=== PATIENT | female | born 1960 | race Caucasian/White ===

== ENCOUNTER 2022-05-30 02:03 | Emergency (ER) | payer MEDICAID, SELFPAY ==
[2022-05-30] VITALS (12 sets, daily range): BP systolic 97–145; BP diastolic 57–84; PULSE 88–125; RESP 11–20; TEMP 37–37.8; O2SAT 91–98; BMI 23.3
--- NOTE | ~2022-05-30 | CT_ITS ---
EXAMINATION: CT HEAD WITHOUT CONTRAST CT CERVICAL SPINE WITHOUT CONTRAST CLINICAL INFORMATION: Fall with loss of consciousness. COMPARISON: None TECHNIQUE: Contiguous axial imaging was performed from the skull base to vertex without intravenous administration of contrast. Contiguous axial imaging was performed from the upper chest through the skull base without intravenous administration of contrast. Coronal and sagittal reformats were obtained at the acquisition workstation. This CT examination was performed using dose optimization techniques as appropriate, variously including the following: *Automated exposure control *Adjustment of mA and/or kV according to patient size (this includes techniques or standardized protocols for targeted exams where dose is matched to indication/reason for exam; i.e. extremities or head) *Use of iterative reconstruction technique DLP: 331 mGy-cm FINDINGS: Head: There is no evidence of acute intracranial hemorrhage or edematous territorial infarction. A few foci of hypoattenuation in the periventricular and deep white matter are consistent with mild microangiopathy. Price-white matter differentiation is preserved. The ventricles are normal in size and configuration. No evidence for obstructive hydrocephalus. No abnormal mass effect or midline shift. No extra-axial fluid collections. Laceration with a small scalp hematoma in the right occipital vertex. No calvarial fracture. Mucosal thickening of the paranasal sinuses. Trace amount of left-sided mastoid fluid. Cervical Spine: The atlantooccipital and atlantoaxial articulations remain well aligned. Straightening of the normal cervical lordosis. Otherwise, there is anatomic alignment of the vertebral bodies and posterior elements. No evidence of acute fracture or subluxation. Mild multilevel cervical spondylosis. There is no prevertebral soft tissue swelling. Enlarged and heterogeneous thyroid gland with multiple nodules, measuring greater than 1 cm in the right side. Multilevel bilateral cervical lymphadenopathy, nonspecific. The lung apices demonstrate no abnormalities. CT/CT cervical spine wo IV con IMPRESSION: 1. Laceration with a small scalp hematoma in the right occipital vertex. 2. No acute intracranial abnormalities. 3. No acute cervical fractures or malalignment. 4. Enlarged and heterogeneous thyroid gland with multiple nodules. Recommend correlation with a nonemergent thyroid ultrasound. 5. Nonspecific bilateral cervical lymphadenopathy.
--- NOTE | ~2022-05-30 | CT_ITS ---
EXAMINATION: CT ANGIOGRAM OF THE CHEST WITH AND WITHOUT CONTRAST (CT PULMONARY ANGIOGRAM FOR PE) CLINICAL INFORMATION: Reason for Exam syncope, elevated dimer COMPARISON: None TECHNIQUE: Prior to contrast administration, noncontrast localization images were obtained. Subsequently, multidetector volumetric imaging was performed from the thoracic inlet to below the diaphragms following the administration of 80 mL Omnipaque 350 intravenous contrast. No contrast reaction reported Sagittal, coronal, and MIP oblique sagittal reformatted images were obtained on the CT workstation, uploaded to PACS, and reviewed. This CT examination was performed using dose optimization techniques as appropriate, variously including the following: *Automated exposure control *Adjustment of mA and/or kV according to patient size (this includes techniques or standardized protocols for targeted exams where dose is matched to indication/reason for exam; i.e. extremities or head) *Use of iterative reconstruction technique Total exam dose-length product 218 mGy-cm FINDINGS: QUALITY OF STUDY/CONTRAST BOLUS: Satisfactory. PULMONARY ARTERIES: No central or segmental pulmonary emboli. THORACIC AORTA: No aneurysm or dissection. LUNG: The lungs are well-expanded there is bibasilar compressive atelectasis. Otherwise lungs are clear. PLEURA: No pleural effusion or pneumothorax. MEDIASTINUM: Normal heart size. No pericardial effusion. No hilar or mediastinal lymphadenopathy. No evidence of septal bowing or right heart strain. The right thyroid lobe is enlarged with heterogeneous appearance question nodule. There is likely a small nodule in the left lobe as well. CHEST WALL/AXILLA: No axillary or internal mammary lymphadenopathy. OSSEOUS STRUCTURES: No lytic or sclerotic process seen UPPER ABDOMEN: There is a 1.2 cm cyst right hepatic lobe adjacent diaphragm. No additional lesions seen. No intrahepatic ductal dilatation. Visualized spleen, pancreas and bilateral adrenal glands unremarkable. No reflux of contrast into the hepatic veins to suggest elevated right heart pressures. CT/CT angio chest PE protocol IMPRESSION: 1. No evidence of PE. 2. No evidence of aortic dissection or aneurysm. 3. Bibasilar compressive atelectasis. 4. Enlarged right thyroid lobe with heterogeneous appearance. Question nodule. 5. Small right hepatic cyst. VTE: negative
--- NOTE | 2022-05-30 02:16 | ECG_ITS ---
Test Reason : SYNCOPE Blood Pressure : / mmHG Vent. Rate : 101 BPM Atrial Rate : 101 BPM P-R Int : 140 ms QRS Dur : 096 ms QT Int : 332 ms P-R-T Axes : 058 024 035 degrees QTc Int : 430 ms Sinus tachycardia Otherwise normal ECG No previous ECGs available Referred By: Generic ED Physician Electronically Signed By:JAYASHREE DOS SANTOS
--- NOTE | 2022-05-30 02:35 | ED.SYNCOPE ---
HPI - Syncope General Chief Complaint: Syncope Stated Complaint: syncope Time Seen by Provider: 05/30/22 02:29 Source: patient Mode of arrival: EMS Limitations: no limitations History of Present Illness HPI narrative: Patient comes to the emergency room from home via EMS. Patient states that while she was walking from her bedroom to the kitchen to grab some water, patient had a syncopal episode. Patient states the right before the syncopal episode, patient was lightheaded. Patient denies any chest pain or shortness of breath. Patient has history of seizures, takes Dilantin, states that she did not have a seizure, she was not postictal. Furthermore, patient complaining of flu-like symptoms since Thursday. Patient complaining of posterior head pain, localized in the scalp, thinks she has a laceration. Patient denies pain anywhere else. Related Data Previous Rx's Medication Instructions Recorded benzonatate 100 mg capsule 100 mg PO TID PRN cough #10 caps 05/30/22 ibuprofen 600 mg tablet 600 mg PO TID PRN fever or pain 05/30/22 #20 tabs Allergies Allergy/AdvReac Type Severity Reaction Status Date / Time No Known Allergies Allergy Verified 05/30/22 02:32 Review of Systems Review of Systems: Constitutional : No Weight loss, No Fever, No Chills, No Night Sweats, No Fatigue, No Malaise ENT/Mouth : No Hearing loss, No Ear Pain, No Nasal Congestion, No Sinus Pain, No Hoarseness, No sore throat, No Rhinorrhea, No Swallowing Difficulty Eyes: No Eye Pain, No Swelling, No Redness, No Foreign Body, No Discharge, No Vision Changes Cardiovascular : No Chest Pain, No SOB, No Dyspnea on Exertion, No Orthopnea, No Edema, No Palpitations Respiratory : Complaining of dry cough, no shortness of breath, no wheezing Gastrointestinal : No Nausea, No Vomiting, No Diarrhea, No Constipation, No abdominal Pain, No Hematochezia, No Melena Genitourinary : no irregular bleeding, No Dysuria, No Urinary Frequency, No Hematuria, No Urinary Incontinence, No Urgency, No Flank Pain, No Urinary Flow Changes, No Hesitancy Musculoskeletal : No joint pain, No Myalgias, No Joint Swelling Skin : No Skin Lesions, No rash Neuro : No Weakness, No Numbness, No Paresthesias, patient complaining of loss of consciousness, lightheadedness Psych : No Anxiety/Panic, No Depression, No SI/HI/AH/VH, No Social Issues, Heme/Lymph: No Bruising, No Bleeding,No Lymphadenopathy Endocrine : No Polyuria, No Polydipsia, No Temperature Intolerance [facility] Past Medical History Medical History (Updated 05/30/22 @ 04:43 by Lou Toledo MD) Seizures Social History Social History Alcohol intake: current Alcohol intake frequency: holidays/special occasions only Smoked in Last 30 Days: No Use of substances other than those prescribed or required for medical reasons: No Advance Directives: No Advance Directives Information Provided: No Physical Exam Vital Signs: Vital Signs: Last Vital Signs Temp 98.9 F 05/30/22 05:59 Pulse 88 05/30/22 05:59 Resp 18 05/30/22 05:59 BP 127/70 05/30/22 06:38 Pulse Ox 97 05/30/22 05:59 O2 Del Method 05/30/22 05:59 O2 Flow Rate 2 05/30/22 05:59 BMI result Body Mass Index 23.3 Const: Other: Appearance: Alert. Oriented X3. No acute distress. Eyes: Pupils equal, round and reactive to light. ENT: Pharynx normal. Neck: On C-spine precautions, no cervical tenderness, no palpable step-offs CVS: Normal heart rate and rhythm. Pulses normal. Normal S1 and S2 Respiratory: No respiratory distress. Breath sounds normal. No Wheezing. No rales Abdomen: Soft and nontender. No rigidity. No distention. Skin: Skin warm and dry. Normal skin color. Normal skin turgor. 5 cm laceration to the scalp Extremities: No lower extremity edema. No Lacerations. No Rash Neuro: Oriented X 3. No motor deficit. No sensory deficit. Moving all extremities. No slurred speech. CN 2 through 12 grossly intact Psych: calm, cooperative, normal affect Course Course Course Narrative: Of patient's labs and imaging pending. Patient tested positive for influenza A. D-dimer is positive, we will go ahead and order a CT scan for pulmonary embolism. Head CT and neck CT negative Patient has a laceration in the head, approximately 5 cm, with the stitches. Patient prefers to have lidocaine injected Orthostatic vitals are positive, likely caused the syncopal episode. The patient will be receiving IV fluids. Also, patient has a fever, given fluids and Tylenol. Likely viral secondary to influenza A. Patient's scalp laceration was repaired with 6 zayda CTA of the chest pending, after IV fluids, patient's blood pressure 121/71, pulse 88, respiratory rate 18, oxygen saturation 93% on room air. Wells criteria score for pulmonary embolism is 0. PE not suspected. CTA negative. Medications Administered Discontinued Medications Generic Name Dose Route Start Last Admin Trade Name Freq PRN Reason Stop Dose Admin Acetaminophen 975 mg 05/30/22 04:41 05/30/22 04:50 Acetaminophen 325 Mg Tablet PO 05/30/22 04:42 975 mg ONCE ONE Administration Sodium Chloride 1,000 mls @ 999 mls/hr 05/30/22 04:40 05/30/22 05:50 Ns IVCONT 05/30/22 05:40 Infused .Q1H1M ONE Infusion Iohexol 65 ml 05/30/22 06:08 05/30/22 06:09 Iohexol 350 Mg/Ml 100 Ml Infus..Btl IV 05/30/22 06:09 65 ml ONCE ONE Administration Lidocaine HCl 10 ml 05/30/22 04:40 05/30/22 04:51 Lidocaine Hcl 2% 2 Ml Vial INFILTRATI 05/30/22 04:41 Not Given ONCE ONE Lidocaine HCl 30 ml 05/30/22 04:48 05/30/22 04:51 Lidocaine Hcl 1 % 20 Ml Vial INFILTRATI 05/30/22 04:49 30 ml ONCE ONE Administration Medical Decision Making Medical Decision Making [facility] Narrative: Patient has syncopal episode, orthostatics pending. Will be done after obtaining a CT scan of the head and neck and clearing the spine. Patient's D-dimer is bumped, 510. Patient will be getting a CTA scan for pulmonary embolism evaluation. Differential Diagnosis Differential Diagnoses: The differential diagnosis associated with the presentation includes (Pulmonary embolism, vasovagal syncope, orthostatic hypotension, COVID, influenza, hydration) Lab Data [facility] Lab Attestation statement: I reviewed the patient's lab results. Result Diagrams: 05/30/22 02:27 05/30/22 02:27 Labs: Lab Results 05/30/22 05/30/22 05/30/22 Range/Units 02:27 02:27 02:27 WBC 6.1 (4.8-10.8) X10*3/uL RBC 4.20 (4.20-5.50) X10*6/uL Hgb 13.1 (12.0-16.0) g/dl Hct 39.2 (37.0-47.0) % MCV 93.3 (80.0-98.0) fL MCH 31.2 (27.0-33.0) pg MCHC 33.4 (31.0-35.0) g/dl RDW 12.9 (11.0-16.0) % Plt Count 148 L (160-400) X10*3/uL MPV 10.9 (9.4-12.3) fL Immature Gran % (Auto) 0.3 (0.0-0.4) % Neut % (Auto) 75.4 H (45-73) % Lymph % (Auto) 8.2 L (20-40) % [place] % (Auto) 15.8 H (2-11) % Eos % (Auto) 0.0 (0-4) % Baso % (Auto) 0.3 (0-2) % Lymph # (Auto) 0.5 L (1.2-4.9) X10*3/uL [place] # (Auto) 1.0 (0.1-1.2) X10*3/uL Eos # (Auto) 0.0 (0.0-0.4) X10*3/uL Baso # (Auto) 0.0 (0.0-0.2) X10*3/uL Abs Immat Gran (auto) 0.02 (0.00-0.03) X10*3/uL Absolute Neuts (auto) 4.6 (2.0-8.3) x10*3/uL Absolute Nucleated RBC 0.000 (0.0-0.012) X10*3/uL Nucleated RBC % (auto) 0.0 (0.0-0.2) /100WBC PT (10.0-13.1) SEC INR (0.9-1.1) D-Dimer High Sensitivty NG/ML Sodium 132 L (135-145) mmol/L Potassium 4.5 (3.3-5.1) mmol/L Chloride 97 (96-108) mmol/L Carbon Dioxide 22 (22-29) mmol/L Anion Gap 18 (12-20) BUN 12 (9-16) mg/dL Creatinine 0.79 (0.5-1.4) mg/dL Estim Creat Clear Calc 68.9 Estimated GFR > 60 Random Glucose 99 (60-115) mg/dL Lactic Acid (0.5-2.0) mmol/L Calcium 8.4 (8.4-10.2) mg/dL Magnesium 1.8 (1.6-2.6) mg/dL Total Bilirubin 0.3 (0.0-1.0) mg/dL Direct Bilirubin < 0.2 (0.0-0.5) mg/dL AST 28 (5-31) U/L ALT 14 (0-31) U/L Alkaline Phosphatase 80 (39-117) U/L Troponin I High Sens (<3.5-17.0) ng/L Total Protein 7.1 (6.5-8.0) g/dL Albumin 3.9 (3.5-5.0) g/dL Ethyl Alcohol mg/dL Influenza Type A (PCR) POSITIVE A (Negative) Influenza Type B (PCR) NEGATIVE (Negative) RSV RNA Qual (PCR) NEGATIVE (Negative) SARS-CoV-2 RNA (RT-PCR) NEGATIVE (Negative) 05/30/22 05/30/22 05/30/22 Range/Units 02:27 02:52 02:52 WBC (4.8-10.8) X10*3/uL RBC (4.20-5.50) X10*6/uL Hgb (12.0-16.0) g/dl Hct (37.0-47.0) % MCV (80.0-98.0) fL MCH (27.0-33.0) pg MCHC (31.0-35.0) g/dl RDW (11.0-16.0) % Plt Count (160-400) X10*3/uL MPV (9.4-12.3) fL Immature Gran % (Auto) (0.0-0.4) % Neut % (Auto) (45-73) % Lymph % (Auto) (20-40) % [place] % (Auto) (2-11) % Eos % (Auto) (0-4) % Baso % (Auto) (0-2) % Lymph # (Auto) (1.2-4.9) X10*3/uL [place] # (Auto) (0.1-1.2) X10*3/uL Eos # (Auto) (0.0-0.4) X10*3/uL Baso # (Auto) (0.0-0.2) X10*3/uL Abs Immat Gran (auto) (0.00-0.03) X10*3/uL Absolute Neuts (auto) (2.0-8.3) x10*3/uL Absolute Nucleated RBC (0.0-0.012) X10*3/uL Nucleated RBC % (auto) (0.0-0.2) /100WBC PT 12.6 (10.0-13.1) SEC INR 1.1 (0.9-1.1) D-Dimer High Sensitivty 510 NG/ML Sodium (135-145) mmol/L Potassium (3.3-5.1) mmol/L Chloride (96-108) mmol/L Carbon Dioxide (22-29) mmol/L Anion Gap (12-20) BUN (9-16) mg/dL Creatinine (0.5-1.4) mg/dL Estim Creat Clear Calc Estimated GFR Random Glucose (60-115) mg/dL Lactic Acid (0.5-2.0) mmol/L Calcium (8.4-10.2) mg/dL Magnesium (1.6-2.6) mg/dL Total Bilirubin (0.0-1.0) mg/dL Direct Bilirubin (0.0-0.5) mg/dL AST (5-31) U/L ALT (0-31) U/L Alkaline Phosphatase (39-117) U/L Troponin I High Sens 4.7 (<3.5-17.0) ng/L Total Protein (6.5-8.0) g/dL Albumin (3.5-5.0) g/dL Ethyl Alcohol mg/dL Influenza Type A (PCR) (Negative) Influenza Type B (PCR) (Negative) RSV RNA Qual (PCR) (Negative) SARS-CoV-2 RNA (RT-PCR) (Negative) 05/30/22 05/30/22 Range/Units 02:52 02:52 WBC (4.8-10.8) X10*3/uL RBC (4.20-5.50) X10*6/uL Hgb (12.0-16.0) g/dl Hct (37.0-47.0) % MCV (80.0-98.0) fL MCH (27.0-33.0) pg MCHC (31.0-35.0) g/dl RDW (11.0-16.0) % Plt Count (160-400) X10*3/uL MPV (9.4-12.3) fL Immature Gran % (Auto) (0.0-0.4) % Neut % (Auto) (45-73) % Lymph % (Auto) (20-40) % [place] % (Auto) (2-11) % Eos % (Auto) (0-4) % Baso % (Auto) (0-2) % Lymph # (Auto) (1.2-4.9) X10*3/uL [place] # (Auto) (0.1-1.2) X10*3/uL Eos # (Auto) (0.0-0.4) X10*3/uL Baso # (Auto) (0.0-0.2) X10*3/uL Abs Immat Gran (auto) (0.00-0.03) X10*3/uL Absolute Neuts (auto) (2.0-8.3) x10*3/uL Absolute Nucleated RBC (0.0-0.012) X10*3/uL Nucleated RBC % (auto) (0.0-0.2) /100WBC PT (10.0-13.1) SEC INR (0.9-1.1) D-Dimer High Sensitivty NG/ML Sodium (135-145) mmol/L Potassium (3.3-5.1) mmol/L Chloride (96-108) mmol/L Carbon Dioxide (22-29) mmol/L Anion Gap (12-20) BUN (9-16) mg/dL Creatinine (0.5-1.4) mg/dL Estim Creat Clear Calc Estimated GFR Random Glucose (60-115) mg/dL Lactic Acid 1.3 (0.5-2.0) mmol/L Calcium (8.4-10.2) mg/dL Magnesium (1.6-2.6) mg/dL Total Bilirubin (0.0-1.0) mg/dL Direct Bilirubin (0.0-0.5) mg/dL AST (5-31) U/L ALT (0-31) U/L Alkaline Phosphatase (39-117) U/L Troponin I High Sens (<3.5-17.0) ng/L Total Protein (6.5-8.0) g/dL Albumin (3.5-5.0) g/dL Ethyl Alcohol < 10 mg/dL Influenza Type A (PCR) (Negative) Influenza Type B (PCR) (Negative) RSV RNA Qual (PCR) (Negative) SARS-CoV-2 RNA (RT-PCR) (Negative) Independent Interpretation I performed an independent interpretation of an: EKG (My interpretation is heart rate 101, sinus tachycardia, no ST segment depression or elevation, no T-wave inversion, QTC 430) and CT Scan Interpretation: CT scan of the head and neck, my interpretation is no acute findings, no intracranial brain bleed, no cervical spine gross abnormalities Radiology report:Head: There is no evidence of acute intracranial hemorrhage or edematous territorial infarction. A few foci of hypoattenuation in the periventricular and deep white matter are consistent with mild microangiopathy. Price-white matter differentiation is preserved. The ventricles are normal in size and configuration. No evidence for obstructive hydrocephalus. No abnormal mass effect or midline shift. No extra-axial fluid collections. Laceration with a small scalp hematoma in the right occipital vertex. No calvarial fracture. Mucosal thickening of the paranasal sinuses. Trace amount of left-sided mastoid fluid. Cervical Spine: The atlantooccipital and atlantoaxial articulations remain well aligned. Straightening of the normal cervical lordosis. Otherwise, there is anatomic alignment of the vertebral bodies and posterior elements. No evidence of acute fracture or subluxation. Mild multilevel cervical spondylosis. There is no prevertebral soft tissue swelling. Enlarged and heterogeneous thyroid gland with multiple nodules, measuring greater than 1 cm in the right side. Multilevel bilateral cervical lymphadenopathy, nonspecific. The lung apices demonstrate no abnormalities. CT/CT cervical spine wo IV con IMPRESSION: 1.? Laceration with a small scalp hematoma in the right occipital vertex. 2.? No acute intracranial abnormalities. 3.? No acute cervical fractures or malalignment. 4.? Enlarged and heterogeneous thyroid gland with multiple nodules. Recommend correlation with a nonemergent thyroid ultrasound. 5.? Nonspecific bilateral cervical lymphadenopathy. Radiology Impression Discussion of test interpretation with radiology: I have reviewed the radiologist's reading. Radiologist Impression: FINDINGS: QUALITY OF STUDY/CONTRAST BOLUS: Satisfactory. PULMONARY ARTERIES: No central or segmental pulmonary emboli.? THORACIC AORTA: No aneurysm or dissection. LUNG: The lungs are well-expanded there is bibasilar compressive atelectasis. Otherwise lungs are clear. PLEURA: No pleural effusion or pneumothorax. MEDIASTINUM: Normal heart size.? No pericardial effusion.? No hilar or mediastinal lymphadenopathy.? No evidence of septal bowing or right heart strain. The right thyroid lobe is enlarged with heterogeneous appearance question nodule. There is likely a small nodule in the left lobe as well. CHEST WALL/AXILLA: No axillary or internal mammary lymphadenopathy. OSSEOUS STRUCTURES: No lytic or sclerotic process seen? UPPER ABDOMEN: There is a 1.2 cm cyst right hepatic lobe adjacent diaphragm. No additional lesions seen. No intrahepatic ductal dilatation. Visualized spleen, pancreas and bilateral adrenal glands unremarkable.? No reflux of contrast into the hepatic veins to suggest elevated right heart pressures. CT/CT angio chest PE protocol IMPRESSION: 1.? No evidence of PE. 2.? No evidence of aortic dissection or aneurysm. 3.? Bibasilar compressive atelectasis. 4.? Enlarged right thyroid lobe with heterogeneous appearance. Question nodule. 5.? Small right hepatic cyst. ? VTE: negative Prescription Management I considered prescription management with: Other (Tamiflu. However, patient has been symptomatic for several days and it is unlikely that she will benefit from Tamiflu. Patient may actually have side effects from med. Patient agrees to treat the symptoms with Tylenol and ibuprofen.) Procedures Laceration Laceration 1: Site: scalp Size (cm): 5 Description: linear and irregular Depth: simple, single layer Local Anesthetic: lidocaine 1% Amount of anesthesia used (mL): 10 Skin layer closed with: other ([place]) Number of sutures: 6 Discharge Plan Discharge Clinical Impression: Influenza A, Orthostatic hypotension Patient Disposition: Still a Patient Instructions: Syncope (ED), Influenza (ED), Hypotension (ED) Additional Instructions: Please follow-up with your primary care physician [facility]. If you have any worsening or new symptoms, please return to the emergency room or call 911 Prescriptions: New benzonatate 100 mg capsule 100 mg PO TID PRN (Reason: cough) Qty: 10 0RF ibuprofen 600 mg tablet 600 mg PO TID PRN (Reason: fever or pain) Qty: 20 0RF
--- NOTE | 2022-05-30 02:54 | PC.NURSE ---
Patient neuro intact. a&ox4, no apparent distress, speaking in full sentences, denies n/v/d; patient c/o dizziness, cough; patient resting quietly. Labs walked down.
[2022-05-30 02:58] LABS: MANUAL DIFF FLAG NO
[2022-05-30 03:00] LABS: Basophils Percent Auto 0.3 % (0-2); Hematocrit 39.2 % (37.0-47.0); Hemoglobin 13.1 g/dl (12.0-16.0); Imm Gran Abs Auto 0.02 X10*3/uL (0.00-0.03); Imm Gran Pct Auto 0.3 % (0.0-0.4); Lymphocytes Absolute Auto 0.5 X10*3/uL (1.2-4.9); Lymphocytes Percent Auto 8.2 % (20-40); Mean Corpuscular HGB Conc 33.4 g/dl (31.0-35.0); Mean Corpuscular Hemoglobin 31.2 pg (27.0-33.0); Mean Corpuscular Volume 93.3 fL (80.0-98.0); Mean Platelet Volume 10.9 fL (9.4-12.3); Monocytes Percent Auto 15.8 % (2-11); Neutrophils Absolute Auto 4.6 x10*3/uL (2.0-8.3); Neutrophils Percent Auto 75.4 % (45-73); Platelet Count 148 X10*3/uL (160-400); Red Cell Distribution Width 12.9 % (11.0-16.0); White Blood Count 6.1 X10*3/uL (4.8-10.8)
[2022-05-30 03:10] LABS: INTERNATIONAL NORM RATIO 1.1 (0.9-1.1); Prothrombin Time 12.6 SEC (10.0-13.1)
[2022-05-30 03:12] LABS: D Dimer High Sensitivity 510 NG/ML
[2022-05-30 03:15] LABS: Lactic Acid 1.3 mmol/L (0.5-2.0)
[2022-05-30 03:20] LABS: Ethanol < 10 mg/dL
[2022-05-30 03:21] LABS: Alanine Aminotransferase 14 U/L (0-31); Albumin Level 3.9 g/dL (3.5-5.0); Alkaline Phosphatase 80 U/L (39-117); Anion Gap 18 (12-20); Aspartate Amino Transferase 28 U/L (5-31); Bilirubin Direct < 0.2 mg/dL (0.0-0.5); Bilirubin Total 0.3 mg/dL (0.0-1.0); Blood Urea Nitrogen 12 mg/dL (9-16); Calcium 8.4 mg/dL (8.4-10.2); Carbon Dioxide 22 mmol/L (22-29); Chloride 97 mmol/L (96-108); Creatinine Clr Calc Pharmacy 68.9; Estimated Glomerular Filt Rate > 60; Glucose Random 99 mg/dL (60-115); Magnesium 1.8 mg/dL (1.6-2.6); Potassium 4.5 mmol/L (3.3-5.1); Sodium 132 mmol/L (135-145); Total Protein 7.1 g/dL (6.5-8.0)
[2022-05-30 03:37] LABS: Influenza A PCR POSITIVE (Negative); Influenza B PCR NEGATIVE (Negative); Resp Syncy Virus RNA Qual PCR NEGATIVE (Negative); SARS COV2 PCR INHOUSE NEGATIVE (Negative)
[2022-05-30 04:13] LABS: Troponin-I High Sensitivity 4.7 ng/L (<3.5-17.0)
[2022-05-30] MEDS: 0.9 % Sodium Chloride 1,000 ML 999 ML IVCONT (04:45)
[2022-05-30] MEDS: Acetaminophen 325 MG TABLET 975 MG PO (04:50)
[2022-05-30] MEDS: Lidocaine HCl 1 % 20 ML VIAL 30 ML INFILTRATI (04:51)
--- NOTE | 2022-05-30 05:46 | PC.NURSE ---
Patient resting quietly.No apparent distress.
--- NOTE | 2022-05-30 05:55 | PC.NURSE ---
Patient's )2Sat has remained between 91-92%. Placed on 2L O2 and O2Sat has increased to 96%. Will continue to monitor.
--- NOTE | 2022-05-30 06:07 | PC.NURSE ---
Per Dr Toledo, removed O2 supplementation.
[2022-05-30] MEDS: iohexoL 350 MG/ML 100 ML INFUS..BTL 65 ML IV (06:09)
[2022-05-30 07:53] LABS: Appearance Urine Clear; Color Urine Yellow; Glucose Urine UA Negative (Negative); Leukocyte Esterase Urine Small (1+) (Negative); Nitrite Urine Negative (Negative); PH 5.5 (5.0-9.0); Specific Gravity - Urine 1.025 (1.005-1.025); UMIC TRIGGER UACC YES; Urine Blood Trace (Negative); Urine Ketones 40 mg/dL (Negative); Urine Protein Trace mg/dL (Neg-Trace)
[2022-05-30 07:58] LABS: Bacteria Urine None Seen (None Seen); Hyaline Casts Urine 0-2 /LPF (0-2); RBC Urine 0-2 /HPF (0-2); Squamous Epithelial Cell Urine 0-2 /HPF (0-2); UACC Culture Trigger YES
[2022-05-30 08:00] LABS: Amphetamine Screen Urine Not Detected (Not Detect); Barbiturates, Urine Not Detected (Not Detect); Benzodiazepines Screen Urine Not Detected (Not Detect); Cannabinoid Screen Urine Not Detected (Not Detect); Cocaine Screen Urine Not Detected (Not Detect); Fentanyl, urine Not Detected (Not Detect); Opiate Screen Urine Not Detected (Not Detect); Phencyclidine Screen Urine Not Detected (Not Detect)
--- NOTE | 2022-05-30 08:06 | PC.NURSE ---
Discharge instructions given and explained. Pt ambulates safely and independently. No respiratory distress. Pt O2 at 95% RA. Pt able to speak in full sentences.
== END 2022-05-30 08:45 | disposition still patient (30) ==
PROVIDERS: Emergency Provider Emergency Medicine; PCP Internal Medicine
DX: J11.1 Influenza due to unidentified influenza virus with other respiratory manifestations (principal); I95.1 Orthostatic hypotension; S01.01XA Laceration without foreign body of scalp, initial encounter; W19.XXXA Unspecified fall, initial encounter; Z20.822 Contact with and (suspected) exposure to COVID-19; Z79.899 Other long term (current) drug therapy; Y93.9 Activity, unspecified; Y92.039 Unspecified place in apartment as the place of occurrence of the external cause; Y99.9 Unspecified external cause status
CPT/HCPCS: 0241U; 12002; 36415; 70450; 71275; 72125; 80053; 80307; 81001; 82077; 82248; 83605; 83735; 84484; 85025; 85379; 85610; 87086; 93005; 96360; 99285; Q9967

== ENCOUNTER 2022-06-06 13:34 | Emergency (ER) | payer MEDICAID, SELFPAY ==
[2022-06-06 14:42] VITALS: BP 155/73; PULSE 95; RESP 18; TEMP 36.6; O2SAT 96; BMI 26.6
--- NOTE | 2022-06-06 14:42 | ED.GENADULT ---
HPI - General Adult General Chief complaint: General Medical Stated complaint: stiches removal Time Seen by Provider: 06/06/22 14:41 Source: patient and old records reviewed Mode of arrival: ambulatory Limitations: no limitations History of Present Illness HPI narrative: 61-year-old female presents to the ER for staple removal. She states she was seen here on May 30 after she syncopized. She was diagnosed with influenza. Seven zayda were placed in her scalp. She states the wound has been a healing appropriately. She states she still has some ongoing lightheadedness but is overall much better from the flu. complaint: Staple removal Location: head Radiation: non-radiation Severity: mild Pain Consistency: now resolved Relieving factors: none Exacerbating factors: none Associated symptoms: denies other symptoms Treatments prior to arrival: none Related Data Previous Rx's Medication Instructions Recorded benzonatate 100 mg capsule 100 mg PO TID PRN cough #10 caps 05/30/22 ibuprofen 600 mg tablet 600 mg PO TID PRN fever or pain 05/30/22 #20 tabs Allergies Allergy/AdvReac Type Severity Reaction Status Date / Time No Known Allergies Allergy Verified 05/30/22 02:32 Review of Systems Review of Systems: Constitutional: No Fever, No Chills Cardiovascular: No Chest Pain, No SOB Gastrointestinal: No Nausea, No Vomiting Musculoskeletal: No joint pain, No Myalgias Skin: + Skin Lesions, No rash Neuro: No Weakness, No Numbness, +Dizziness, No Headache Heme/Lymph: No Bruising PMFSH Past Medical History Medical History (Updated 06/06/22 @ 14:47 by CHERELLE Archer) Seizures Social History Social History Alcohol intake: current Alcohol intake frequency: holidays/special occasions only Advance Directives: No Advance Directives Information Provided: No Physical Exam ED Vital Signs: Vital Signs - 24 hr 06/06/22 14:42 Temperature 97.9 F Pulse Rate 95 Respiratory Rate 18 Blood Pressure 155/73 H Pulse Oximetry 96 Oxygen Delivery Method Room Air BMI result Body Mass Index 26.6 Appearance: Alert. Oriented X3. No acute distress. HEENT: well healed linear 2.5 cm laceration to the apex of the scalp with [address], healing appropriately, slight scabbing CVS: Normal heart rate and rhythm. Pulses normal. Respiratory: No respiratory distress. Skin: Skin warm and dry. Normal skin color. Normal skin turgor. No rashes. Extremities: normal inspection Neuro: Oriented X 3. Grossly normal, nonfocal. steady gait Course Course Course Narrative: 61 yo female presenting for staple removal from scalp lac, placed 05/30. healed approprately. all 7 zayda removed, tolerated well. wound edges well approximated with no gaps or bleeding. wound care discussed, stable for d/c home. Discharge Plan Discharge Clinical Impression: Removal of zayda Patient Disposition: Home, Self-Care Instructions: Stitches Removal (ED) Additional Instructions: Follow up with your doctor as needed. Prescriptions: No Action benzonatate 100 mg capsule 100 mg PO TID PRN (Reason: cough) Qty: 10 0RF ibuprofen 600 mg tablet 600 mg PO TID PRN (Reason: fever or pain) Qty: 20 0RF Interventions: ED Discharge Assessment Last Done: 06/06/22 14:52 Discharge Date/Time: 06/06/22 14:54
== END 2022-06-06 14:54 | disposition home or self-care (01) ==
PROVIDERS: Emergency Provider Student in an Organized Health Care Education/Training Program; PCP Internal Medicine
DX: Z48.02 Encounter for removal of sutures (principal); Z79.899 Other long term (current) drug therapy
CPT/HCPCS: 99282; 99283